=== PATIENT | female | born 1970 | race Caucasian/White ===

== ENCOUNTER → 2024-11-22 13:27 | Outpatient (REF) | payer BC, SELFPAY ==
[2024-11-22 16:06] LABS: % Basophils 0.5 % (0-2); % Eosinophils 2.8 % (0-6); % Immature Granulocytes 0.2 % (0-0.5); % Lymphocytes 22.9 % (20.5-51.1); % Monocytes 7.2 % (1.7-9.3); % Neutrophils 66.4 % (42.2-75.2); Absolute Eosinophils 0.2 10^3/uL (0-0.7); Absolute Lymphocytes 1.3 10^3/uL (1.2-3.4); Absolute Monocytes 0.4 10^3/uL (0.1-0.6); Absolute Neutrophils 3.8 10^3/uL (1.4-6.5); Hematocrit 36.7 % (37.0-47.0); Hemoglobin 11.7 g/dL (12.0-16.0); Mean Corp Hgb Conc. 31.9 g/dL (33.0-37.0); Mean Corpuscular Hgb 24.9 pg (27.0-31.0); Mean Corpuscular Volume 78.1 fL (81.0-99.0); Mean Platelet Volume 10.1 fL (7.4-10.4); Nucleated Red Blood Cells % 0 %; Platelet Count 331 10^3/uL (130-400); Red Cell Dist. Width 14.5 % (11.5-14.5); White Blood Cell Count 5.7 10^3/uL (4.8-10.8)
[2024-11-22 16:19] LABS: ALT (SGPT) 16 U/L (0-35); AST (SGOT) 27 U/L (14-36); Albumin 4.9 g/dl (3.5-5.0); Alkaline Phosphatase 118 U/L (38-126); Blood Urea Nitrogen 13 mg/dl (7-17); Calcium 9.6 mg/dl (8.4-10.2); Carbon Dioxide 27 mmol/L (22-30); Chloride 100 mmol/L (98-107); Erythrocyte Sed Rate 8 mm/hour (0-20); Glucose 90 mg/dl (70-99); Iron 46 ug/dl (37-170); Potassium 4.1 mmol/L (3.5-5.1); Sodium 139 mmol/L (135-145); Total Bilirubin 0.6 mg/dl (0.2-1.3); Total Protein 7.2 g/dl (6.3-8.2); eGFR > 60.00
[2024-11-22 16:23] LABS: C-Reactive Protein < 5.00 mg/L (0.0-10.00); Urine Albumin Negative (Neg - Trace); Urine Bilirubin Negative (Negative); Urine Character Clear (Clear); Urine Color Yellow; Urine Glucose Negative (Negative); Urine Ketone Negative (Negative); Urine Leukocyte Negative (Negative); Urine Nitrite Negative (Negative); Urine Occult Blood Negative (Negative); Urine Specific Gravity 1.005 (<1.030); Urine Urobilinogen Negative (Neg - 1+)
[2024-11-22 16:28] LABS: Percent Saturation 11 % (20-50); Total Iron Binding Capacity 395 ug/dl (265-497)
[2024-11-22 16:37] LABS: Vitamin D, 25-OH*** 33.2 ng/mL (30-80)
[2024-11-22 16:51] LABS: TSH Reflex To Free T4 2.19 uIU/ml (0.47-4.68)
[2024-11-22 16:54] LABS: Ferritin 6.1 ng/ml (11.1-264.0)
[2024-11-23 04:37] LABS: IgA 127 mg/dl (70-400)
[2024-11-23 19:00] LABS: Hepatitis B Surface Antigen Negative (Negative)
[2024-11-23 19:16] LABS: Hepatitis C Antibody Negative (Negative)
[2024-11-24 12:30] LABS: Lyme Antibody Screen, EIA Negative (Negative)
[2024-11-24 13:34] LABS: Rheumatoid Agglutinin Less Than 10 IU (<10 IU)
[2024-11-24 17:55] LABS: HLA-B27 Negative (Negative)
[2024-11-24 19:23] LABS: CCP Antibody IgG/IgA 2 Units (0-19)
[2024-11-25 02:12] LABS: ANA, IgG Reflex to HEp-2 None Detected (None Detected)
[2024-11-25 02:23] LABS: tTG IgA Antibody <1.02 FLU (0.00-4.99)
== END ==
LOC: HWLAB 13:27
PROVIDERS: ATTENDING PHYSICIAN Hospitalist; FAMILY PHYSICIAN Family Medicine
DX: M06.9 Rheumatoid arthritis, unspecified (principal); M25.641 Stiffness of right hand, not elsewhere classified; A69.20 Lyme disease, unspecified; E03.9 Hypothyroidism, unspecified; E55.9 Vitamin D deficiency, unspecified; E61.1 Iron deficiency; K90.0 Celiac disease; Z79.899 Other long term (current) drug therapy
CPT/HCPCS: 36415; 73110; 73120; 80053; 81003; 82306; 82728; 82784; 83516; 83540; 83550; 84443; 84550; 85025; 85652; 86038; 86140; 86200; 86231; 86430; 86618; 86704; 86803; 86812; 87340